=== PATIENT | female | born 1945 | race Caucasian/White ===

== ENCOUNTER 2016-03-09 19:27 | Emergency (ER) | payer MEDICARE, OTHER ==
--- NOTE | 2016-03-09 20:07 | ED Physician Documentation ---
Dizziness - HISTORIAN Historian: patient - HPI Stated Complaint: Dizzy spells during the afternoon, lasting approximately 5 minutes. Chief Complaint: Dizziness Timing: cannot confirm onset Duration: intermittent episodes Severity: mild Associated Symptoms: none Usually: walks w/o assistance Worsened By: nothing Further Comments: yes (70 year old female patient presents with intermittent complaints over the past month, patient experienced 2 episodes today. States "room spins",episodes lasted 10-15 min) - ROS CONST: none EYES/ENT: none GI/: none MS/SKIN/LYMPH: none NEURO/PSYCH: none CVS/RESP: none - PAST HX Past History: hypertension, other (hypothyroidism, ) Surgeries/Procedures: other (D&C, right carpal tunnel, colonoscopy) Allergies/Adverse Reactions: Allergies Allergy/AdvReac Type Severity Reaction Status Date / Time Penicillins Allergy Verified 03/09/16 20:00 Sulfa (Sulfonamide Allergy Verified 03/09/16 20:00 Antibiotics) Home Medications: Ambulatory Orders Medication Instructions Recorded Aspirin 81 mg PO DAILY 06/28/12 Fluticasone/Vilanterol [Breo 1 puff IH D 03/09/16 Ellipta 100-25 Mcg INH] Hydrocodone/Acetaminophen 1 tab PO PRN PRN 03/09/16 [Hydrocodon-Acetaminophen 5-325] - SOCIAL HX Smoking History: non-smoker - FAMILY HX Family History: denies: none - VITAL SIGNS Vital Signs: Vital Signs Temp Pulse Resp BP Pulse Ox 98 F 93 H 22 160/72 96 03/09/16 19:27 03/09/16 19:27 03/09/16 19:27 03/09/16 19:27 03/09/16 19:27 - REVIEWED ASSESSMENTS Nursing Assessment Reviewed: Yes Vitals Reviewed: Yes Progress - Progress Progress: Discussed treatment options. Patient states she is not dizzy at present. Offered prn prescription or follow up with Dr Harper. Educated on jeri maneuvers and referral to PT. Patient does not want meclizine. C/O dizziness with repositioning on stretcher, offered meclizine tablet, patient refused. Will discharge home with 3 tabs to use prn. Instructed patient to follow up with Dr Harper for yearly lab and thyroid panel. Dizziness Physical Exam - Physical Exam General Appearance: [id number] EENT: eye inspection normal, ENT inspection normal, pharynx normal, no signs of dehydration, SUSAN, no nystagmus, TM's nml Respiratory: no respiratory distress, breath sounds nml, chest non-tender CVS: reg rate & rhythm, heart sounds normal, equal pulses, no murmur, no gallop , PMI nml, no JVD, no friction rub, 24 Abdomen: soft, no organomegaly, normal bowel sounds, no abdominal bruit, no distension Skin: normal color, warm/dry, NR, INT, PAL, DR Neuro: nml orientation, nml speech, nml cognition, mood/affect nml Extremities: non-tender, normal range of motion, no evidence of injury, no edema , J, [employer] Cranial: nml as tested, no evidence of acute CVA Cerebellar: nml as tested, nml gait Sensorimotor: motor nml, sensation nml Discharge Clincal Impression: Vertigo Referrals: Wendy Harper MD [Primary Care Provider] - 2 Days Additional Instructions: Meclizine 1 tab every hours as needed for dizziness. Change positions slowly. Home Medications: Ambulatory Orders Aspirin 81 mg PO DAILY 06/28/12 Fluticasone/Vilanterol [Breo Ellipta 100-25 Mcg INH] 1 puff IH D 03/09/16 Hydrocodone/Acetaminophen [Hydrocodon-Acetaminophen 5-325] 1 tab PO PRN PRN Condition: Stable Disposition: HOME, SELF-CARE Decision to Admit: NO Decision Time: 20:08
[2016-03-09] MEDS ORDERED: MECLIZINE HCL 25 MG TABLET PO ONE (20:09)
[2016-03-09 20:26] VITALS: BP 154/68
== END 2016-03-09 20:15 | disposition home or self-care (01) ==
LOC: ED 19:27
DX: R42 Dizziness and giddiness (principal)
CPT/HCPCS: 99282

== ENCOUNTER 2016-03-11 10:39 | Outpatient (CLI) | payer MEDICARE, OTHER ==
[2016-03-11 10:57] LABS: BASOPHILS % 0.3 (0.0-1.5); EOSINOPHILS % 5.3 % (0.0-6.8); MEAN CORPUSCULAR HEMOGLOBIN 31.4 pg (28.0-34.0); MONOCYTES # 0.2 # k/uL (0.0-0.9); MONOCYTES % 2.6 % (0.0-11.0); NEUTROPHILS # 5.1 # k/uL (1.4-7.7)
[2016-03-11 11:28] LABS: eGFR (African) > 60; eGFR (Non-African) > 60
== END 2016-03-11 10:40 ==
LOC: LAB 10:39
PROVIDERS: ATTEND Family Medicine
DX: R42 Dizziness and giddiness (principal); E03.9 Hypothyroidism, unspecified
CPT/HCPCS: 36415; 80053; 84443; 85025

== ENCOUNTER 2016-10-09 10:34 | Outpatient (CLI) | payer MEDICARE, OTHER ==
--- NOTE | 2016-10-09 14:42 | Diagnostic Imaging Report ---
LIZETTE GEORGE [facility] [id number] [facility] [address] [place] [address]. [id number] Report Submission Date: Oct 09, 2016 11:45:17 AM CDT Patient Study Name: EARL DUNN Date: Oct 09, 2016 10:37:24 AM CDT Modality Type: CR Gender: F Description: SPINE : 41 Institution: [facility] Physician: LIZETTE GEORGE Examination: Plain film lumbar spine History: Back discomfort Findings: 3 views of the lumbar spine demonstrates significant curvature to the left. Anterior, lateral, and posterior osteophytes. No obvious compression deformity. Extensive facet degenerative changes. No prevertebral regularity. Impression: Extensive degenerative changes and curvature. No overt compression deformity. If patient is experiencing neurologic symptoms, consider obtaining MRI. Electronically signed on Oct 09, 2016 11:45:17 AM CDT by: Blane VINCENT
== END 2016-10-09 10:40 ==
LOC: RAD 10:34
PROVIDERS: ATTEND Physician Assistant
DX: M54.9 Dorsalgia, unspecified (principal)
CPT/HCPCS: 72100

== ENCOUNTER 2017-06-30 14:58 | Outpatient (CLI) | payer MEDICARE, OTHER | END 2017-06-30 15:00 | LOC: LAB 14:58 | PROVIDERS: ATTEND Family Medicine | DX: E03.9 Hypothyroidism, unspecified (principal) | CPT/HCPCS: 36415; 84443 ==

== ENCOUNTER 2018-11-16 13:24 | Outpatient (CLI) | payer MEDICARE, OTHER ==
[2018-11-16 14:39] LABS: eGFR (Non-African) > 60
== END 2018-11-16 13:26 ==
LOC: LAB 13:24
PROVIDERS: ATTEND Family Medicine
DX: E03.9 Hypothyroidism, unspecified (principal); I10 Essential (primary) hypertension
CPT/HCPCS: 36415; 80048; 84443